=== PATIENT | male | born 1970 | race Caucasian/White ===

== ENCOUNTER → 2021-01-29 | Day surgery (SDC) | payer OTHER ==
[~2021-01-29] MED LIST: HYDROCHLOROTHIA25 M1 PO; NORCO5 PO
--- NOTE | ~2021-01-29 | OP ---
[facility] [address] [place] [address] OPERATIVE REPORT Name: KENDRICK HARTMANN Room: [facility]#: [id number] Admission: 01/29/21 Attend Phys: Heber Mansfield Discharge: Date of : 66 Report #: [id number] THIS REPORT FOR: cc: FAM - No family physician/PCP FAM - No family physician/PCP Heber Mansfield MD ~ DATE OF SURGERY: 01/29/2021 PREOPERATIVE DIAGNOSIS: Right inguinal hernia. POSTOPERATIVE DIAGNOSIS: Right inguinal hernia. OPERATION: Laparoscopic repair of right inguinal hernia with mesh. SURGEON: Heber Mansfield MD ANESTHESIA: General. ESTIMATED BLOOD LOSS: Minimal. SPECIMENS: None. DESCRIPTION OF PROCEDURE: After informed consent was obtained, the patient was brought to the operating room and placed supine. SCDs were placed and working, preoperative antibiotics were administered, general anesthesia was induced. The abdomen was prepped and draped in the usual sterile fashion. A 10 mm incision was made above the umbilicus. Fascia was incised and a trocar was placed. Pneumoperitoneum was established. Left and right lower quadrant 5 mm trocars were placed. The patient was placed in the Trendelenburg position. The peritoneum at the right ASIS was scored. Peritoneum was incised and reflected inferiorly. I was able to identify the pubic bone. I was able to identify the cord structures and they were protected at all times. He had a direct hernia defect. This was fully reduced. The cord structures were dissected out. I then inserted a large Bard 3DMax midway mesh. It was tacked to the pubic bone using 2 tackers. Two tacks were placed. The peritoneum was reapproximated over the mesh with the tacker as well. There was 100% coverage of the mesh. The ports were then removed under direct vision. The fascia at the umbilicus was closed with a [id number] 0 Vicryl. Skin was closed with 4-0 Monocryl. Incisions were dressed with Steri-Strips. COMPLICATIONS: [place] [address] OPERATIVE REPORT Name: KENDRICK HARTMANN Room: [facility]#: [id number] Admission: 01/29/21 Attend Phys: Heber Mansfield Discharge: Date of : 66 Report #: [id number] DISPOSITION: The patient was taken to recovery in satisfactory condition. By: [id number] Mansfield MD /ginger
[2021-01-29 08:52] LABS: HEMATOCRIT 47.5 % (42.0-52.0); HEMOGLOBIN 16.5 gm/dL (14.0-18.0); MCH 33.9 pg (26.0-34.0); MCHC 34.7 g/dL (28.0-37.0); MCV 97.7 fL (80.0-100.0); MPV 8.2 fl. (7.2-11.1); RBC 4.86 mil/uL (4.50-6.00); RDW-CV 13.9 % (10.5-14.5); WBC 8.2 thou/uL (4.0-11.0)
[2021-01-29 08:57] LABS: CALCIUM 8.7 mg/dL (8.5-10.1); CREATININE 0.9 mg/dL (0.6-1.3); POTASSIUM 3.5 mmol/L (3.5-5.1)
--- NOTE | 2021-01-29 11:50 | EKG ---
[place] [address] ELECTROCARDIOGRAM REPORT Name: AMBER HARTMANNY Cristine Room: [facility]#: [id number] Admission: 01/29/21 Attend Phys: Heber Blue Discharge: Date of : 66 Date of Service: 01/29/21 0856 Report #: [id number] THIS REPORT FOR: //name// [facility] Test Date: 2021-01-29 Test Time: 08:56:28 Pat Name: KENDRICK HARTMANN Department: Room: Gender: Supervisor Felling Bucking: : 1970 Requested By: Heber Mansfield Order Number: [id number] Reading MD: Abisai Meade Measurements Intervals [place] Rate: 72 P: 4 [place]: 167 QRS: -47 QRSD: 98 T: 47 QT: 409 QTc: 448 Interpretive Statements Sinus rhythm Left anterior fascicular block No previous ECG available for comparison Electronically Signed On 01-29-2021 11:50:37 CDT by Abisai Meade [email or web address] <ELECTRONICALLY SIGNED> By: Abisai Meade MD, [facility] 01/29/21 1150 [id number] Abisai Meade MD, [facility] /EPI
== END | disposition home or self-care (01) ==
LOC: M.SUR 08:20
PROVIDERS: ATTEND Surgery
DX: K40.90 Unilateral inguinal hernia, without obstruction or gangrene, not specified as recurrent (principal); I10 Essential (primary) hypertension; F32.9 Major depressive disorder, single episode, unspecified; F17.210 Nicotine dependence, cigarettes, uncomplicated; Z98.890 Other specified postprocedural states; Z79.899 Other long term (current) drug therapy; Z20.822 Contact with and (suspected) exposure to COVID-19; Z90.49 Acquired absence of other specified parts of digestive tract; Z88.8 Allergy status to other drugs, medicaments and biological substances